=== PATIENT | male | born 1945 | race Caucasian/White ===

== ENCOUNTER → 2017-03-16 | Outpatient (CLI) | payer MEDICARE ==
[~2017-03-16] MED LIST: ATOR20TA58 PO; CHOL100013 PO; CITA20TA5 PO; CLON0.5T3 PO; FINA5TAB4 PO; FOLI1TAB16 PO; GABA-586 PO; IOHEXOL 180 MG/ML 10 ML VIAL. ONE; LACT1CAP8 PO; MULT1TAB52 PO; OMEG1CAP6 PO; TRAZ50TA15 PO; VITA1CAP PO; methylPREDNISolone ACETATE 40 MG/ML VIAL. ONE; methylPREDNISolone ACETATE 80 MG/ML VIAL. ONE
--- NOTE | 2017-03-16 14:30 | CONS ---
DATE OF CONSULTATION: 03/16/2017 INITIAL CONSULTATION FOR PAIN CLINIC CHIEF COMPLAINT: Low back and right lower extremity pain. HISTORY OF PRESENT ILLNESS: This is a 71-year-old male who presents with history of pain since 10/2016. He was shoveling some wet dirt, picked a shovel full up, twisted to his right side and had significant pain immediately in the low back, right posterior gluteus, posterior thigh and into the calf on the right side, which he eventually went to the Emergency Department for and had 2 morphine shots and the pain intensity went down to some extent. It has been constant, though, since that time, aching, burning, constant, radiating into the right leg as well, intermittent in intensity, but always present, changes during the day; worse with activity, standing or walking; better with lying down or sitting down. The patient reports it is better at night. He lies down and it does not wake him from sleep. It does not affect his bowel or bladder control, but does affect his ability to walk. Standing and bending forward significantly increases the pain. The patient does a lot of mechanical work on vehicles and leaning over the fender or over the yanez is exacerbating the pain significantly. The patient reports no loss of motor function, but significant fatigability in the right lower extremity. The patient did have an MRI scan and CT myelogram of the lumbar spine, showing [id number] left neural foraminal narrowing at L2-L3, mild neural foraminal narrowing at L1-L2 without change, neural foraminal narrowing, mild, L3-L4, L4-L5 and L5-S1 without change; instrumentation noted with fusion from L3 through L5 and enhancement of cauda equina nerve root, likely from right noticed from prior surgery. The patient reports his disability rating from 0 to 10, 10 being the worst; it is a 5 with family and home responsibilities and recreation; 6 with occupation; 3 with social activity; 2 with sexual behavior, 4 for self-care and 0 with life support activities. The patient has tried physical therapy in the past, has had injections prior to his surgeries, also he is doing exercises, still does some stretching and strengthening exercises on his own, has had no formal physical therapy at this point currently. The patient reports no loss of motor function or any significant fatigability in the right leg. PAST MEDICAL HISTORY: Significant for arthritis and bilateral hearing loss. PAST SURGICAL HISTORY: Previous surgeries include cervical fusion, lumbar fusion, last one in 2006; previous cataract extractions; tonsillectomy and 2 hernia repairs. FAMILY HISTORY: Significant for no major medical problems or conditions that he is aware of. SOCIAL HISTORY: The patient does not smoke, does not drink alcohol. 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 The patient lives locally in [place], [place] and is and currently retired. REVIEW OF SYSTEMS: The patient's review of systems is positive for those items mentioned in the history of present illness. All systems reviewed and otherwise negative. It is complete, full and well documented on the patient's chart. CURRENT MEDICATIONS: List includes finasteride, multivitamins, folic acid, probiotics, vitamin D3, fish oil, gabapentin, vitamin B, clonazepam, gabapentin, citalopram, budesonide and trazodone. ALLERGIES: The patient has no known drug allergies. PHYSICAL EXAMINATION: VITAL SIGNS: Today, the patient's blood pressure is 125/77, pulse 67, respirations 18 and temperature 98.0 degrees Fahrenheit. Height is 5 feet 6 inches, weight is 154 pounds. GENERAL: The patient is awake, alert, oriented, appropriate, with a very pleasant demeanor. HEENT: Head shows normocephalic, atraumatic. Extraocular movements are intact and symmetrical. Oral cavity, mucous membranes moist and pink. Dentition is intact. NECK: Shows anterior throat supple, without palpable lymphadenopathy noted. Swallow reflex is symmetrical. CHEST: Shows normal on inspection. Breath sounds are clear to auscultation bilaterally. HEART: Shows S1 and S2 clear. ABDOMEN: Soft, nontender and nondistended. No palpable organomegaly. There is no rebound or guarding demonstrated. BACK: Shows spine grossly in the midline. Normal-appearing thoracic kyphosis and mild flattening of lumbar lordotic curvature. Lumbar well-healed surgical scars noted . Paraspinous musculature is symmetrical on inspection. With palpation, it shows some moderate tenderness in the low right distribution of the inferior aspect of the paraspinous musculature without radiation, left sided, nontender, but it appears symmetrical and firm bilaterally. No tenderness over the sacrum or sacroiliac regions. The patient shows good rotation and motion of the lumbar spine, both laterally greater than 10 degrees right and left, with very minor pain reported with right lateral rotation. No difficulty with extension, some very minor tenderness with right low back with forward flexion 45 degrees, but without radiation on any rotational maneuvers of the lumbar spine. EXTREMITIES: Lower extremities show deep tendon reflexes at 1+ in the patellar and tendo calcaneus tendons are equal. Motor exam is strong with 5/5 dorsiflexion, extension, quadriceps and hamstring flexion and symmetrical. Peripheral pulses are 1+ posterior tibial and dorsalis pedis pulses. No peripheral edema is noted. No clubbing, no cyanosis. Lower extremities are warm and dry to touch, equal in color and appearance. Straight leg raise noted to be mildly positive at about 40 degrees on the right, with pain in the posterior gluteus and posterior thigh, but is relieved with knee flexion. Left side is negative. Gaenslen's and Kalpesh's maneuvers are negative bilaterally. The patient is able to stand, stand on his toes without difficulty or loss of balance and is able to ambulate with heel-toe walk for several steps without losing balance as well. He is ambulating with a normal-appearing gait for short distance in the office, not using any assistive devices canes or walkers to ambulate. IMPRESSION: 1. This is a 71-year-old male with approximately 4-month history of pain in low back, right lower extremity, exacerbated with injury in October of this year and with radicular qualities in the right lower extremity. 2. The patient's CT myelogram of lumbar spine as noted. 3. History of arthritis. PLAN: Options were discussed with the patient including conservative medical management, physical therapy and interventional technique. He would like to pursue interventional techniques. We discussed a lumbar epidural steroid injection via the caudal approach using description as well as anatomical models to describe the procedure. Risks were then discussed including, but not limited to bleeding, infection, possibility of epidural hematoma and subsequent neurologic compromise, dural puncture, headaches, spinal cord and/or nerve damage, side effects of steroid medication and poor results regarding pain control. The patient understands and wishes to proceed. The patient will return to clinic in approximately 2 weeks for followup, was counseled on return appointment, activity level and side effects to be aware of. DIAGNOSIS: Lumbar radiculopathy with lumbar degenerative disk disease and post-lumbar laminectomy syndrome. PROCEDURES: Lumbar epidural steroid injection, caudal approach, using a C-arm fluoroscopic guidance under sterile prep and drape using local anesthetic. MEDICATIONS INJECTED: A total of 120 mg Depo-Medrol plus 10 mL preservative-free normal saline and 2 mL Isovue for contrast. CONDITION ON DISCHARGE: Stable. The patient tolerated procedure well, had no complications. ADAM GONZALEZ MD DR: KEILA/arash JOB#: [id number] / [id number]
== END | disposition home or self-care (01) ==
LOC: PNCL 10:21
PROVIDERS: ATTEND Anesthesiology
DX: M51.16 Intervertebral disc disorders with radiculopathy, lumbar region (principal); M96.1 Postlaminectomy syndrome, not elsewhere classified; M19.91 Primary osteoarthritis, unspecified site; H91.90 Unspecified hearing loss, unspecified ear; Z98.41 Cataract extraction status, right eye; Z98.42 Cataract extraction status, left eye
CPT/HCPCS: 62323; J1030; J1040

== ENCOUNTER → 2017-03-30 | Outpatient (CLI) | payer MEDICARE ==
[~2017-03-30] MED LIST changes: +BUPIVACAINE MPF 0.25% 10 ML VIAL. ONE; -methylPREDNISolone ACETATE 40 MG/ML VIAL. ONE
--- NOTE | 2017-03-30 12:26 | PAIN ---
DATE OF SERVICE: 03/30/2017 PROGRESS NOTE FOR PAIN CLINIC DIAGNOSES: 1. Lumbar radiculopathy with lumbar degenerative disk disease and post-lumbar laminectomy syndrome. 2. Right sacroiliitis. HISTORY OF PRESENT ILLNESS: The patient is a 71-year-old male who returns for followup status post caudal epidural steroid injection x 1. The patient reports about 100% better for a few days and the pain began to return, although it is across his low back and into his right leg. His main complaint is a very specific area of pain in the right low back and posterior hip and some radiation into the right lateral calf on the right side, worse with standing, walking, changing positions. The patient has been doing some anat projects for his daughter's house over the past few weeks where he is on his knees a lot putting down aluminum panels and securing them and so forth. The patient reports this has been increasing the pain in his back and leg. The patient reports the pain is aching, dull, radiating to the right leg as well 8 on a scale of 10 at its worst, 5 on average and 1 at least and is 5 today. The patient reports no new motor or sensory deficits. No new bowel or bladder incontinence. PHYSICAL EXAMINATION: VITAL SIGNS: The patient's blood pressure 122/75, pulse 63, respirations are 18, temperature 97.9 degrees Fahrenheit. Height is 5 feet 6 inches and weight is 154 pounds. GENERAL: The patient is awake, alert, oriented, appropriate and very pleasant demeanor. HEENT: Head shows normocephalic and atraumatic. The patient wears eyeglasses. Extraocular movements are intact and symmetrical. Oral cavity, mucous membranes are moist and pink. Dentition is intact. NECK: Shows anterior throat supple. Swallow reflex is symmetrical. CHEST: Shows normal on inspection. Breath sounds clear to auscultation bilaterally. HEART: Shows S1 and S2 clear. ABDOMEN: Soft, nontender and nondistended. No palpable organomegaly. No rebound or guarding demonstrated. BACK: Shows spine grossly in the midline. Lumbar paraspinous musculature shows a well-healed surgical scar in the midline as muscle shows symmetrical on inspection and palpation shows some [id number] tenderness bilaterally, will more on the right than the left with palpation over the sacroiliac region have a significant tenderness over the right side posterior superior iliac spine and into the sacroiliac region just inferior medial to this with significant radiation of pain into the gluteus with palpation, also some minor radiation into the lower leg with palpation. The left side is only very minimally tender without radiation. The patient shows good rotation and motion of the lumbar spine, both laterally as well as extension and flexion. LOWER EXTREMITIES: Showed deep tendon reflexes 1+ in the patellar and tendo-calcaneus tendons. Motor exam is strong with 5/5 dorsiflexion, extension, quadriceps and hamstring flexion. Peripheral pulses are 1+. No peripheral edema is noted. Options were discussed with the patient and the patient's old chart was reviewed as well as his current medication regimen updated. Current review of systems updated today as well. We will proceed with a right sacroiliac joint injection today with fluoroscopic guidance. Risks were again discussed including, but not limited to bleeding, infection, possibility of epidural hematoma, subsequent neurologic compromise, dural punctures, headaches, spinal cord and/or nerve damage, side effects of steroid medications, exposure to fluoroscopy, spread of local anesthetic and numbness as well as poor results regarding pain control. The patient understands and wishes to proceed. The patient will return to clinic in approximately 2 weeks for followup. He was counseled on return appointment, activity level and side effects to be aware of. DIAGNOSIS: Right sacroiliitis. PROCEDURE: Right sacroiliac joint injection using C-arm fluoroscopic guidance under sterile prep and drape using local anesthetic. MEDICATIONS INJECTED: Total of 80 mg Depo-Medrol plus 2 mL of 0.25% bupivacaine and 2 mL of Isovue for contrast. CONDITION AT DISCHARGE: Stable. The patient tolerated procedure well, had no complications. ADAM GONZALEZ MD DR: KEILA/arash JOB#: [id number] / [id number]
== END | disposition home or self-care (01) ==
LOC: PNCL 08:53
PROVIDERS: ATTEND Anesthesiology
DX: M46.1 Sacroiliitis, not elsewhere classified (principal); M51.16 Intervertebral disc disorders with radiculopathy, lumbar region; M19.90 Unspecified osteoarthritis, unspecified site; M96.1 Postlaminectomy syndrome, not elsewhere classified; H91.90 Unspecified hearing loss, unspecified ear
CPT/HCPCS: G0260; J1040; J3490; 77002; 27096

== ENCOUNTER → 2017-08-26 | Outpatient (CLI) | payer MEDICARE ==
[~2017-08-26] MED LIST changes: -ATOR20TA58 PO; +BUPIVACAINE MPF 0.25% 10 ML VIAL.; -BUPIVACAINE MPF 0.25% 10 ML VIAL. ONE; -CHOL100013 PO; -CITA20TA5 PO; -CLON0.5T3 PO; -FINA5TAB4 PO; -FOLI1TAB16 PO; -GABA-586 PO; +IOHEXOL 180 MG/ML 10 ML VIAL.; -IOHEXOL 180 MG/ML 10 ML VIAL. ONE; -LACT1CAP8 PO; -MULT1TAB52 PO; -OMEG1CAP6 PO; -TRAZ50TA15 PO; -VITA1CAP PO; +methylPREDNISolone ACETATE 80 MG/ML VIAL.; -methylPREDNISolone ACETATE 80 MG/ML VIAL. ONE
== END | disposition home or self-care (01) ==
LOC: PNCL 08:29
DX: M19.011 Primary osteoarthritis, right shoulder (principal); M51.16 Intervertebral disc disorders with radiculopathy, lumbar region; M96.1 Postlaminectomy syndrome, not elsewhere classified; M46.1 Sacroiliitis, not elsewhere classified; Z79.899 Other long term (current) drug therapy
CPT/HCPCS: 20610; 77002; J1040; J3490; Q9965